=== PATIENT | male | born 1945 | race Caucasian/White ===

== ENCOUNTER 2018-07-14 13:49 | Inpatient (IN) | payer OTHER ==
[~2018-07-14] VITALS: Ht 182.9 cm; Wt 130.3 kg
[~2018-07-14 13:49] MED LIST: ALLO100T PO; APIX5TAB PO; CLOP75TA28 PO; DIGO0.1262 PO; FURO20TA3 PO; GABA300C10 PO; GLIP-116 PO; METO-169 PO; VALS160T51 PO
[2018-07-14 15:59] LABS: Basophils # (auto) 0.1 uL; Basophils % (auto) 0.8 % (0.0-2.0); Eosinophils # (auto) 0.2 uL; Eosinophils % (auto) 2.8 % (0.0-7.0); Hemoglobin 13.4 g/dL (13.5-17.5); Lymphocytes # (auto) 1.3 uL; Lymphocytes % (auto) 19.8 % (10.0-50.0); Mean Corpuscular Hgb Conc. 32.8 g/dL (32.0-36.0); Mean Corpuscular Volume 85.3 fL (80.0-100.0); Monocytes # (auto) 0.5 uL; Neutrophils # (auto) 4.4 uL; Neutrophils % (auto) 68.6 % (37.0-80.0); Nucleated Red Blood Cells % 0.1 %; Platelet Count (auto) 230 10^3/uL (140-450); Red Cell Distribution Width 17.6 % (11.8-14.3); White Blood Cell 6.4 10^3/uL (4.4-10.8)
[2018-07-14 16:17] LABS: INR 1.04 (0.9-1.15); Partial Thromboplastin Time 31.1 sec (23.78-33.04); Prothrombin Time 11.1 sec (9.27-12.13)
[2018-07-14 16:31] LABS: Albumin 3.5 g/dL (3.4-5.0); Calcium 8.7 mg/dL (8.5-10.1); Potassium 3.8 mmol/L (3.5-5.1)
[2018-07-14 16:36] LABS: BUN/Creatinine Ratio 20.3; Bilirubin, Total 0.2 mg/dL (0.2-1.0); Total Protein 7.9 g/dL (6.4-8.2)
[2018-07-14] MEDS ORDERED: ACETAMINOPHEN 500 MG TAB PO PRN (20:00)
[2018-07-14] MEDS ORDERED: NITROGLYCERIN 0.4 MG SL TAB SL PRN (20:00)
[2018-07-14] MEDS ORDERED: hydrALAZINE HCL 20 MG/ML VL IV PRN (20:00)
[2018-07-14] MEDS ORDERED: MORPHINE SULF INJ 2 MG/ML SYRINGE 1ML IV PRN ×2 (20:00)
[2018-07-14] MEDS ORDERED: DEXTROSE (50%) 50ML SYRG IV PRN (20:00)
[2018-07-14] MEDS ORDERED: ONDANSETRON HCL 4 MG/2 ML VIAL IV PRN (20:00)
[2018-07-14] MEDS: InsuLIN REG 1unit/0.01ml Soln (100units/ml) SC SCH (22:00)
[2018-07-14] MEDS: APIXABAN 2.5 MG TAB PO SCH (22:26)
[2018-07-14] MEDS: METOPROLOL TARTRATE 25 MG TAB PO SCH (22:26)
[2018-07-14] MEDS: ATORVASTATIN 20 MG TAB PO SCH (22:26)
[2018-07-14] MEDS: ACCU-CHEK COMFORT CURVE STRIP VI SCH (22:29)
[2018-07-15 06:00] LABS: Basophils # (auto) 0 uL; Basophils % (auto) 0.6 % (0.0-2.0); Eosinophils # (auto) 0.2 uL; Eosinophils % (auto) 3.6 % (0.0-7.0); Hematocrit 42.6 % (41.0-53.0); Lymphocytes # (auto) 1.4 uL; Lymphocytes % (auto) 23.1 % (10.0-50.0); Mean Corpuscular Hgb Conc. 32.8 g/dL (32.0-36.0); Mean Corpuscular Volume 85.3 fL (80.0-100.0); Monocytes # (auto) 0.6 uL; Monocytes % (auto) 10.1 % (0.0-12.0); Neutrophils # (auto) 3.8 uL; Neutrophils % (auto) 62.6 % (37.0-80.0); Nucleated Red Blood Cells % 0.1 %; Platelet Count (auto) 216 10^3/uL (140-450); Red Cell Distribution Width 17.4 % (11.8-14.3)
[2018-07-15 06:29] LABS: Cholesterol 140 mg/dL (< 200); HDL Cholesterol 38 mg/dL (40-59); LDL Cholesterol 86 mg/dL (< 100); Triglycerides 172 mg/dL (< 150)
[2018-07-15] MEDS: ACCU-CHEK COMFORT CURVE STRIP VI SCH ×4 (07:25→22:04)
[2018-07-15] MEDS: InsuLIN REG 1unit/0.01ml Soln (100units/ml) SC SCH ×4 (07:49→22:03)
[2018-07-15] MEDS: METOPROLOL TARTRATE 25 MG TAB PO SCH (10:00)
[2018-07-15] MEDS: ASPirin-EC 81 mg tab PO SCH (10:20)
[2018-07-15] MEDS: APIXABAN 2.5 MG TAB PO SCH ×2 (10:20→22:03)
[2018-07-15] MEDS: LISINOPRIL 10 MG TAB PO SCH (10:21)
[2018-07-15] MEDS: PANTOPRAZOLE 40 MG/10 ML VIAL IV SCH (10:21)
[2018-07-15 20:07] VITALS: BP 97/59
[2018-07-15 21:30] VITALS: BP 97/59
[2018-07-15] MEDS: ATORVASTATIN 20 MG TAB PO SCH (22:00)
[2018-07-16] MEDS: HYDROcodone-ACET 5/325MG TAB PO PRN ×2 (04:03→19:46)
[2018-07-16 04:30] VITALS: BP 109/61
[2018-07-16 06:15] LABS: Basophils # (auto) 0 uL; Basophils % (auto) 0.5 % (0.0-2.0); Eosinophils # (auto) 0.2 uL; Eosinophils % (auto) 3.5 % (0.0-7.0); Hematocrit 39.4 % (41.0-53.0); Hemoglobin 12.9 g/dL (13.5-17.5); Lymphocytes # (auto) 1.6 uL; Lymphocytes % (auto) 21.9 % (10.0-50.0); Mean Corpuscular Hemoglobin 28.1 pg (28.0-32.0); Mean Corpuscular Hgb Conc. 32.8 g/dL (32.0-36.0); Mean Corpuscular Volume 85.6 fL (80.0-100.0); Monocytes # (auto) 0.7 uL; Monocytes % (auto) 9.9 % (0.0-12.0); Neutrophils # (auto) 4.6 uL; Neutrophils % (auto) 64.2 % (37.0-80.0); Nucleated Red Blood Cells % 0.1 %; Platelet Count (auto) 203 10^3/uL (140-450); Red Cell Distribution Width 17.4 % (11.8-14.3); White Blood Cell 7.1 10^3/uL (4.4-10.8)
[2018-07-16 06:30] LABS: BUN/Creatinine Ratio 22.2; Calcium 8.5 mg/dL (8.5-10.1); Potassium 3.8 mmol/L (3.5-5.1)
[2018-07-16] MEDS ORDERED: GLIP-116 PO (06:33)
[2018-07-16] MEDS ORDERED: FURO20TA PO (06:33)
[2018-07-16] MEDS ORDERED: PANT40TA2 PO (06:33)
[2018-07-16] MEDS ORDERED: APIX5TAB PO (06:33)
[2018-07-16] MEDS: InsuLIN REG 1unit/0.01ml Soln (100units/ml) SC SCH ×4 (07:07→22:16)
[2018-07-16] MEDS: ACCU-CHEK COMFORT CURVE STRIP VI SCH ×4 (07:07→22:17)
[2018-07-16] MEDS ORDERED: ADENOSINE 108 MG in GIVE UN-DILUTED 0 ML IV STA (08:38)
[2018-07-16 08:54] VITALS: BP 103/51
[2018-07-16] MEDS: ASPirin-EC 81 mg tab PO SCH (10:00)
[2018-07-16 10:38] VITALS: BP 107/50
[2018-07-16] MEDS: PANTOPRAZOLE 40 MG/10 ML VIAL IV SCH (12:35)
[2018-07-16] MEDS: APIXABAN 2.5 MG TAB PO SCH ×2 (12:35→22:16)
[2018-07-16] MEDS: LISINOPRIL 10 MG TAB PO SCH (12:36)
[2018-07-16 17:00] VITALS: BP 146/94
[2018-07-16] MEDS: FUROSEMIDE 20 MG TAB PO SCH (18:19)
[2018-07-16 22:00] VITALS: BP 138/77
[2018-07-16] MEDS: ATORVASTATIN 20 MG TAB PO SCH (22:00)
[2018-07-16] MEDS: POTASSIUM CHLORIDE 8 MEQ TAB PO SCH (22:16)
[2018-07-17] MEDS ORDERED: DOCUSATE SOD 100 MG CAP PO PRN
[2018-07-17 05:00] VITALS: BP 114/59
[2018-07-17 05:50] LABS: Basophils # (auto) 0 uL; Basophils % (auto) 0.6 % (0.0-2.0); Eosinophils # (auto) 0.2 uL; Eosinophils % (auto) 3.1 % (0.0-7.0); Hemoglobin 12.9 g/dL (13.5-17.5); Lymphocytes # (auto) 1.3 uL; Mean Corpuscular Hemoglobin 28.5 pg (28.0-32.0); Mean Corpuscular Hgb Conc. 33.1 g/dL (32.0-36.0); Mean Corpuscular Volume 86.1 fL (80.0-100.0); Monocytes # (auto) 0.7 uL; Monocytes % (auto) 9.6 % (0.0-12.0); Neutrophils # (auto) 4.8 uL; Neutrophils % (auto) 68.7 % (37.0-80.0); Nucleated Red Blood Cells % 0.1 %; Platelet Count (auto) 204 10^3/uL (140-450); Red Blood Cells 4.53 10^6/uL (4.5-5.90); Red Cell Distribution Width 17.3 % (11.8-14.3); White Blood Cell 6.9 10^3/uL (4.4-10.8)
[2018-07-17] MEDS: FUROSEMIDE 20 MG TAB PO SCH (06:00)
[2018-07-17 06:16] LABS: Calcium 8.6 mg/dL (8.5-10.1)
[2018-07-17 06:18] LABS: BUN/Creatinine Ratio 23.6
[2018-07-17] MEDS: InsuLIN REG 1unit/0.01ml Soln (100units/ml) SC SCH ×2 (07:11→11:33)
[2018-07-17] MEDS: ACCU-CHEK COMFORT CURVE STRIP VI SCH ×2 (07:11→11:33)
[2018-07-17 08:24] VITALS: BP 128/75
[2018-07-17] MEDS: LISINOPRIL 10 MG TAB PO SCH (10:00)
[2018-07-17] MEDS: ASPirin-EC 81 mg tab PO SCH (10:21)
[2018-07-17] MEDS: APIXABAN 2.5 MG TAB PO SCH (10:21)
[2018-07-17] MEDS: POTASSIUM CHLORIDE 8 MEQ TAB PO SCH (10:21)
[2018-07-17] MEDS: PANTOPRAZOLE 40 MG/10 ML VIAL IV SCH (10:22)
[2018-07-17 11:59] VITALS: BP 137/89
== END 2018-07-17 15:00 | disposition home or self-care (01) | DRG 291 ==
LOC: ER 13:49 → EDBD 13:49 → TELE 19:51 → TELE-WESTW 07-15 20:17
PROVIDERS: ADMIT Nurse Practitioner Acute Care; ATTEND Internal Medicine
DX: I13.0 Hypertensive heart and chronic kidney disease with heart failure and stage 1 through stage 4 chronic kidney disease, or unspecified chronic kidney disease (principal); I50.43 Acute on chronic combined systolic (congestive) and diastolic (congestive) heart failure; I48.92 Unspecified atrial flutter; I25.110 Atherosclerotic heart disease of native coronary artery with unstable angina pectoris; E78.5 Hyperlipidemia, unspecified; E11.22 Type 2 diabetes mellitus with diabetic chronic kidney disease; E66.9 Obesity, unspecified; E11.21 Type 2 diabetes mellitus with diabetic nephropathy; D64.9 Anemia, unspecified; I48.91 Unspecified atrial fibrillation; J44.9 Chronic obstructive pulmonary disease, unspecified; N18.3 Chronic kidney disease, stage 3 (moderate); Z79.01 Long term (current) use of anticoagulants; Z79.84 Long term (current) use of oral hypoglycemic drugs; Z79.899 Other long term (current) drug therapy; Z81.8 Family history of other mental and behavioral disorders; I25.2 Old myocardial infarction; Z82.3 Family history of stroke; Z82.49 Family history of ischemic heart disease and other diseases of the circulatory system; Z82.5 Family history of asthma and other chronic lower respiratory diseases; Z83.3 Family history of diabetes mellitus; Z86.73 Personal history of transient ischemic attack (TIA), and cerebral infarction without residual deficits; Z95.5 Presence of coronary angioplasty implant and graft; Z95.0 Presence of cardiac pacemaker; Z87.891 Personal history of nicotine dependence; Z68.39 Body mass index [BMI] 39.0-39.9, adult
CPT/HCPCS: 36415; 71045; 78452; 80048; 80053; 80061; 82962; 83036; 83880; 84443; 84484; 85025; 85610; 85730; 86141; 93017; 93306; C9113; G0378; J0153; J1815